=== PATIENT | male | born 1990 | race Caucasian/White ===

== ENCOUNTER 2016-11-30 22:08 | Emergency (ER) | payer OTHER ==
[~2016-11-30] VITALS: Ht 188 cm; Wt 93.0 kg
[2016-11-30 22:15] VITALS: BP 110/66; PULSE 82; RESP 16; TEMP 98.7; O2SAT 100
[2016-11-30] MEDS ORDERED: ONDANSETRON HCL 4 MG/2 ML VIAL IV ONE (22:45)
[2016-11-30] MEDS ORDERED: SODIUM CHLOR 0.9% 1000 ML INJ 1,000 ML IV ONE (22:45)
[2016-11-30 23:56] LABS: AUTOMATED NEUTROPHIL # 6.9 TH/MM3 (1.8-7.7); BASOPHIL % 0.3 % (0.0-2.0); EOSINOPHIL % 0.4 % (0.0-4.0); HEMATOCRIT 40.6 % (39.0-51.0); HEMO FLAGS DIFF FINAL; LYMPH % 13.7 % (9.0-44.0); LYMPHOCYTE # 1.2 TH/MM3 (1.0-4.8); MEAN CELL VOLUME 87.2 FL (80.0-100.0); MEAN CORPUSCULAR HEMOGLOBIN 30.4 PG (27.0-34.0); MEAN CORPUSCULAR HGB CONC 34.9 % (32.0-36.0); MONO % 3.6 % (0.0-8.0); PLATELET COUNT 225 TH/MM3 (150-450); RED BLOOD COUNT 4.65 MIL/MM3 (4.50-5.90); WHITE BLOOD COUNT 8.4 TH/MM3 (4.0-11.0)
[2016-12-01 00:25] LABS: BICARBONATE 22.3 MEQ/L (21.0-32.0); POTASSIUM 4.3 MEQ/L (3.5-5.1)
--- NOTE | 2016-12-01 00:57 | RADRPT ---
EXAM DATE/TIME: 12/01/2016 00:42 [place] COMPARISON: No previous studies available for comparison. INDICATIONS : Altered mental status. RADIATION DOSE: 37.32 CTDIvol (mGy) MEDICAL HISTORY : None SURGICAL HISTORY : None. ENCOUNTER: Initial ACUITY: 1 day PAIN SCALE: 0/10 LOCATION: cranial TECHNIQUE: Multiple contiguous axial images were obtained of the head. Using automated exposure control and adj ustment of the mA and/or kV according to patient size, radiation dose was kept as low as reasonably a chievable to obtain optimal diagnostic quality images. DICOM format image data is available electro nically for review and comparison. FINDINGS: CEREBRUM: The ventricles are normal for age. No evidence of midline shift, mass lesion, hemorrhage or acute in farction. No extra-axial fluid collections are seen. POSTERIOR FOSSA: The cerebellum and brainstem are intact. The 4th ventricle is midline. The cerebellopontine angle i s unremarkable. EXTRACRANIAL: The visualized portion of the orbits is intact. SKULL: The calvaria is intact. No evidence of skull fracture. CONCLUSION: Negative noncontrast head CT. Bhanu Tsai MD on December 01, 2016 at 0:55 Board Certified Radiologist. This report was verified electronically.
--- NOTE | 2016-12-01 01:26 | PD ---
HPI Chief Complaint: Alcohol/Drug Intoxication Time Seen by Provider: 22:30 Travel History International Travel<30 days: No Contact w/Intl Traveler<30days: No Traveled to known affect area: No History of Present Illness HPI 26 old man presents to the emergency department for evaluation after he was collapsed while drinking. He was reportedly caught and lowered to the ground. Bystanders denied that he was injured or hurt his head. Patient is intoxicated and not able to give much additional history. Denies pain anywhere. Denies any illness or injury. History Past Medical History Medical History: Denies Significant Hx Tetanus Vaccination: Unknown Influenza Vaccination: No Past Surgical History Surgical History: Unable to Obtain Social History Alcohol Use: Yes Tobacco Use: No Allergies-Medications (Allergen,Severity, Reaction): Coded Allergies: UNOBTAINABLE (Unverified , 11/30/16) Reported Meds & Prescriptions Reported Meds & Active Scripts Active Active Prescriptions or Reported Medications Unobtainable Review of Systems ROS Limitations: Clinical Condition Physical Exam Narrative GENERAL: 26-year-old man, stuporous, occasional vomiting, no evidence of trauma. SKIN: Focused skin assessment warm/dry. HEAD: Atraumatic. Normocephalic. EYES: Pupils equal and round. No scleral icterus. No injection or drainage. ENT: No nasal bleeding or discharge. Mucous membranes pink and moist. NECK: Trachea midline. No step-offs deformities or tenderness. CARDIOVASCULAR: Regular rate and rhythm. No murmur appreciated. RESPIRATORY: No accessory muscle use. Clear to auscultation. Breath sounds equal bilaterally. GASTROINTESTINAL: Abdomen soft, non-tender, nondistended. Hepatic and splenic margins not palpable. MUSCULOSKELETAL: No obvious deformities. No clubbing. No cyanosis. No edema. NEUROLOGICAL: Stuporous but will rouse noxious stimuli. Can answer simple questions. Unclear how reliable they are. Moves all extremities. No focal deficits. Data Data Last Documented VS Vital Signs Date Time Temp Pulse Resp B/P Pulse Ox O2 Delivery O2 Flow Rate FiO2 11/30/16 22:20 82 14 100 Room Air 11/30/16 22:15 98.7 110/66 Orders Alcohol (Ethanol) (11/30/16 22:30) Ondansetron Inj (Zofran Inj) (11/30/16 22:45) Sodium Chlor 0.9% 1000 Ml Inj (Ns 1000 M (11/30/16 22:45) Ct Brain W/O Iv Contrast(Rout) (11/30/16 ) Complete Blood Count With Diff (11/30/16 23:38) Basic Metabolic Panel (Bmp) (11/30/16 23:38) Labs Laboratory Tests Test 11/30/16 11/30/16 22:35 23:45 Ethyl Alcohol Level 188 MG/DL White Blood Count 8.4 TH/MM3 Red Blood Count 4.65 MIL/MM3 Hemoglobin 14.1 GM/DL Hematocrit 40.6 % Mean Corpuscular Volume 87.2 FL Mean Corpuscular Hemoglobin 30.4 PG Mean Corpuscular Hemoglobin 34.9 % Concent Red Cell Distribution Width 13.0 % Platelet Count 225 TH/MM3 Mean Platelet Volume 9.1 FL Neutrophils (%) (Auto) 82.0 % Lymphocytes (%) (Auto) 13.7 % Monocytes (%) (Auto) 3.6 % Eosinophils (%) (Auto) 0.4 % Basophils (%) (Auto) 0.3 % Neutrophils # (Auto) 6.9 TH/MM3 Lymphocytes # (Auto) 1.2 TH/MM3 Monocytes # (Auto) 0.3 TH/MM3 Eosinophils # (Auto) 0.0 TH/MM3 Basophils # (Auto) 0.0 TH/MM3 CBC Comment DIFF FINAL Differential Comment Sodium Level 139 MEQ/L Potassium Level 4.3 MEQ/L Chloride Level 105 MEQ/L Carbon Dioxide Level 22.3 MEQ/L Anion Gap 12 MEQ/L Blood Urea Nitrogen 13 MG/DL Creatinine 1.13 MG/DL Estimat Glomerular Filtration 80 ML/MIN Rate Random Glucose 119 MG/DL Calcium Level 8.4 MG/DL [facility] Medical Decision Making Medical Screen Exam Complete: Yes Emergency Medical Condition: Yes Interpretation(s) CBC is unremarkable CMP is unremarkable Alcohol 188 CT head is negative Differential Diagnosis Intoxication, poisoning, injury, other Narrative Course Medical decision making 26-year-old man presents emergency department stuporous and presumably intoxicated. His alcohol was only moderately elevated. Given this we did check a CT and some basic labs. He is sobering up in the emergency department here. Once is able to safely walk will discharge him with his parents. Diagnosis Primary Impression: Alcohol intoxication Additional Impression: Altered mental status Additional Instructions: Follow-up with your primary Dr. uriarte return home if you're not completely well. Return to the emergency department for any new or worsening symptoms. Scripts Unable to Obtain Active Prescriptions or Reported Meds Disposition: 01 DISCHARGE HOME Condition: Stable Brian Chan MD Dec 01, 2016 01:26
== END 2016-12-01 01:51 | disposition home or self-care (01) ==
LOC: NEPC 22:08
DX: F10.129 Alcohol abuse with intoxication, unspecified (principal); Y90.6 Blood alcohol level of 120-199 mg/100 ml
CPT/HCPCS: 70450; 80048; 80307; 85025; 96361; 96374; 99285; J2405; J7030